=== PATIENT | female | born 1955 | race Caucasian/White ===

== ENCOUNTER → 2017-02-12 | Outpatient (CLI) | payer BC | END | disposition home or self-care (01) | LOC: LAB.O 12:20 | PROVIDERS: ATTEND Nurse Practitioner Acute Care | DX: N30.00 Acute cystitis without hematuria (principal) ==

== ENCOUNTER → 2017-02-13 | Outpatient (CLI) | payer BC ==
--- NOTE | 2017-02-13 11:10 | CT ---
EXAM DESCRIPTION: Abdoment/Pelvis w/o Contrast CLINICAL HISTORY: RENAL PAIN COMPARISON: None Available TECHNIQUE: CT of the abdomen and Pelvis was performed without IV contrast. This exam was performed according to our departmental dose-optimization program, which includes automated exposure control, adjustment of the mA and/or kV according to patient size and/or use of iterative reconstruction technique. FINDINGS: The lung bases are unremarkable. There is no pneumoperitoneum, ascites or adenopathy. Mural calcifications are noted in the abdominal aorta without aneurysm. The gallbladder is surgically absent. There is no left or right-sided urinary tract calculus, hydronephrosis or perinephric inflammation. The liver, spleen, pancreas and adrenals are unremarkable for noncontrast technique. No dilated small bowel loops. No bladder wall thickening. The uterus and ovaries are unremarkable for patient's age. Is a moderate amount of colonic stool and gas. Colonic diverticulosis is noted without diverticulitis. No concerning bone lesion. Degenerative disc disease is noted at several levels in the lumbar spine, worse at L4-5. IMPRESSION: Moderate amount of colonic stool and gas, but no urinary tract calculus, perinephric inflammation or additional abnormality to slight patient symptoms. Degenerative changes in the lumbar spine including degenerative disc disease at L4-5. Electronically signed by: Max Betancourt MD 02/13/2017 11:10 AM CDT
== END | disposition home or self-care (01) ==
LOC: RAD 09:18
PROVIDERS: ATTEND Nurse Practitioner Acute Care
DX: M54.5 Low back pain (principal); R10.13 Epigastric pain

== ENCOUNTER 2017-04-17 13:09 | Emergency (ER) | payer BC ==
--- NOTE | 2017-04-17 14:16 | CT ---
EXAM DESCRIPTION: Head. CT head without contrast. CLINICAL HISTORY: pain in left occipital-parietal region COMPARISON: None available TECHNIQUE: Multiple axial images of the head without contrast. This exam was performed according to our departmental dose-optimization program, which includes automated exposure control, adjustment of the mA and/or kV according to patient size and/or use of iterative reconstruction technique. FINDINGS: There is no CT evidence of intracranial hemorrhage, mass effect, or large territory infarction. Mild generalized volume loss is present. Mild patchy supratentorial white matter hypodensities. There are no abnormal extra-axial fluid collections. Calcific plaque in the visualized arteries. There is no acute calvarial defect. The visualized paranasal sinuses and the mastoids are clear. IMPRESSION: 1. No CT evidence of an acute intracranial abnormality. If there is concern for an acute or subacute infarct, consider follow-up MRI. 2. Mild senescent changes. Electronically signed by: Jayro Calderon MD 04/17/2017 2:14 PM CDT
[2017-04-17] MEDS ORDERED: ORPHENADRINE CITRATE 30 MG/ML AMP IV ONE (14:22)
[2017-04-17] MEDS ORDERED: KETOROLAC TROMETHAMINE INJ 30 MG/ML VIAL IM ONE (14:22)
[2017-04-17] MEDS ORDERED: SODIUM CHLORIDE 0.9% 1000ML 1,000 ML IVS ONE (14:38)
[2017-04-17] MEDS ORDERED: ORPHENADRINE CITRATE 30 MG/ML AMP IM ONE (15:25)
[2017-04-17] MEDS ORDERED: KETOROLAC TROMETHAMINE INJ 30 MG/ML VIAL ONE (15:31)
--- NOTE | 2017-04-17 16:18 | ED.PDOC ---
History of Present Illness - General Chief Complaint: Headache Stated Complaint: sharp shooting pain Time Seen by Provider: 04/17/17 13:41 Source: patient Exam Limitations: no limitations - History of Present Illness Initial Comments: Patient presents with headache for one week. It is left parieto-occipital. Is intermittent and sharp/shooting in nature. No previous episodes. No associated symptoms. Timing/Duration: 1 week Severity: moderate Improving Factors: nothing Worsening Factors: nothing Associated Symptoms: denies symptoms Allergies/Adverse Reactions: Allergies Codeine Allergy (Verified 04/17/17 14:41) Vomitting Home Medications: Ambulatory Orders Alprazolam [Xanax] 1 mg PO TID PRN 04/17/17 Cyclobenzaprine HCl 10 mg PO BEDTIME 04/17/17 Cyclobenzaprine HCl [Flexeril] 10 mg PO TID #20 tab 04/17/17 Gabapentin 300 mg PO BEDTIME 04/17/17 Venlafaxine HCl [Venlafaxine HCl ER] 300 mg PO DAILY 04/17/17 Review of Systems - Review of Systems Constitutional: States: no symptoms reported EENTM: States: no symptoms reported Respiratory: States: no symptoms reported Cardiology: States: no symptoms reported Gastrointestinal/Abdominal: States: no symptoms reported Genitourinary: States: no symptoms reported Musculoskeletal: States: no symptoms reported Skin: States: no symptoms reported Neurological: States: see HPI Endocrine: States: no symptoms reported Hematologic/Lymphatic: States: no symptoms reported Past Medical History (General) - Patient Medical History Hx Stroke: No Hx Congestive Heart Failure: No Hx Diabetes: No - Vaccination History Hx Influenza Vaccination: No Hx Pneumococcal Vaccination: No - Social History Hx Tobacco Use: Yes - Female History Patient is a Female of Child Bearing Age (10 -59 yrs old): No Family Medical History - Family History Mother Living Status: Cause of : lung CA Physical Exam - Physical Exam General Appearance: Alert Eye Exam: bilateral normal Ears, Nose, Throat: normal ENT inspection Neck: non-tender, full range of motion, supple Respiratory: chest non-tender, lungs clear Cardiovascular/Chest: normal peripheral pulses, regular rate, rhythm Gastrointestinal/Abdominal: normal bowel sounds, non tender, soft Neurologic: training director II-XII nml as tested, no motor/sensory deficits, alert, normal mood/affect, oriented x 3 Skin Exam: normal color Comments: TTP over left parieto-occipital region. Progress - Progress Progress: 04/17/17 16:18 CT head negative. Patient was given toradol 30 mg IM and Norflex 60 mg IM and the pain improved. She was sent home with flexeril and directions to also use ibuprofen if needed. 04/17/17 16:19 She refused fluids. Laboratory Tests 04/17/17 04/17/17 04/17/17 14:00 14:00 14:00 WBC 6.1 RBC 4.15 L Hgb 12.0 Hct 36.2 MCV 87.3 MCH 28.9 MCHC 33.2 RDW 13.3 Plt Count 326 MPV 6.4 L Absolute Neuts (auto) 3.80 Absolute Lymphs (auto) 1.80 Absolute Monos (auto) 0.50 Absolute Eos (auto) 0.00 Absolute Basos (auto) 0.00 Neutrophils % 62.0 Lymphocytes % 29.5 Monocytes % 8.2 Eosinophils % 0.1 L Basophils % 0.2 Sodium 139 Potassium 4.1 Chloride 101 Carbon Dioxide 31 Anion Gap 11.1 L BUN 28 H Creatinine 0.91 BUN/Creatinine Ratio 30.8 H Random Glucose 129 H Serum Osmolality 284.7 Calcium 9.2 Total Bilirubin 0.4 AST 24 ALT 24 Alkaline Phosphatase 94 Serum Total Protein 6.9 Albumin 3.9 Globulin 3.0 Albumin/Globulin Ratio 1.3 TSH 3.77 Departure - Departure Clinical Impression: Headache Disposition: Discharge to Home or Self Care Condition: Good Departure Forms: ED Discharge - Pt. Copy, Patient Portal Self Enrollment Diet: resume usual diet Activity: increase activity as tolerated Referrals: Smith Haque MD [Primary Care Provider] - 1-2 Weeks Prescriptions: Cyclobenzaprine HCl [Flexeril] 10 mg PO TID #20 tab Home Medications: Ambulatory Orders Alprazolam [Xanax] 1 mg PO TID PRN 04/17/17 Cyclobenzaprine HCl 10 mg PO BEDTIME 04/17/17 Cyclobenzaprine HCl [Flexeril] 10 mg PO TID #20 tab 04/17/17 Gabapentin 300 mg PO BEDTIME 04/17/17 Venlafaxine HCl [Venlafaxine HCl ER] 300 mg PO DAILY 04/17/17 Additional Instructions: Take prescription as directed. May use ibuprofen also. Apply heat to the area three times per day. Follow up with your regular doctor within the next three days.
[2017-04-17 17:12] VITALS: BP 120/80; TEMP 98.5; O2SAT 96
== END 2017-04-17 16:25 | disposition home or self-care (01) ==
LOC: ER 13:09
DX: R51 Headache (principal); Z88.6 Allergy status to analgesic agent; Z87.891 Personal history of nicotine dependence
CPT/HCPCS: 36415; 70450; 80053; 84443; 85025; J1885; J2360

== ENCOUNTER → 2019-11-09 | Outpatient (CLI) | payer BC ==
--- NOTE | 2019-11-10 21:03 | MAM ---
EXAM DESCRIPTION: 3D Screening BILATERAL : Digital Mammography. CLINICAL HISTORY: 64 years Female SCREEN . No complaints and no personal history of breast cancer. Remote family history of breast cancer. Menarche age 18. Childbirth age 24. Menopause age 47. No HRT. Lifetime risk of developing breast cancer (Tyrer-Cuzick model)(%): 5.5. COMPARISON: Bilateral screening digital breast tomosynthesis February 2018. TECHNIQUE: Bilateral CC and MLO projection full-field images, digital tomosynthesis mammographic technique. Bilateral digital 2-D full-field MLO images. CAD available for 2-D images. FINDINGS: The breast parenchymal density pattern is: Scattered areas of fibroglandular density. No skin thickening or nipple retraction. Oval-shaped mass or focal asymmetry in the lower outer quadrant of the middle third of the left breast is stable. No new focal, stellate mass or density, focal asymmetry , and no suspicious microcalcifications bilaterally. Stable mammograms compared to prior study. IMPRESSION: Benign exam. BIRAD CATEGORY: 2 BENIGN FINDINGS. RECOMMENDATIONS: FOLLOW UP: Routine digital bilateral mammographic screening, one year interval from 2019. Written communication explaining the IMPRESSION and follow-up, will be mailed to the patient and referring health care provider. According to the [employer], yearly mammograms are recommended starting at age 40 and continuing as long as a woman is in good health. Any breast change noted on a breast self-exam should be reported promptly to the patient's healthcare provider. Breast MRI is recommended for women with an approximately 20-25% or greater lifetime risk of breast cancer, including women with a strong family history of breast or ovarian cancer and women who have been treated for Hodgkin's disease. A negative mammographic report should not delay tissue diagnosis in patients with significant clinical history or physical findings. Extremely dense breast tissue limits the sensitivity of digital mammography. Electronically signed by: Nura Massey MD 11/10/2019 9:01 PM [employer]
== END ==
LOC: MAMMO 10:30
PROVIDERS: ATTEND General Practice
DX: Z12.31 Encounter for screening mammogram for malignant neoplasm of breast (principal)

== ENCOUNTER → 2019-11-20 | Outpatient (CLI) | payer BC | LOC: LAB.O 08:46 | PROVIDERS: ATTEND General Practice | DX: R53.83 Other fatigue (principal) ==